=== PATIENT | female | born 1995 | race Two or more races ===

== ENCOUNTER 2020-05-31 10:14 | Emergency (ER) | payer SELFPAY ==
[~2020-05-31] VITALS: Ht 162.6 cm; Wt 54.0 kg
[2020-05-31 11:59] LABS: BASO % 1 % (0-3); EOS % 0 % (0-3); HEMATOCRIT 36.4 % (36.0-47.0); HEMOGLOBIN 13.2 g/dL (12.0-15.5); LYMPH # 1.5 x10^3/uL (1.0-4.8); LYMPH % 15 % (24-48); MEAN CORPUSCULAR HEMOGLOBIN 35 pg (25-35); MEAN CORPUSCULAR HGB CONC 36 g/dL (31-37); MEAN CORPUSCULAR VOLUME 98 fL (79-100); MONO # 0.7 x10^3/uL (0.0-1.1); MONO % 7 % (0-9); NEUT # 7.8 x10^3/uL (1.8-7.7); NEUT % 78 % (31-73); PLATELET COUNT 241 x10^3/uL (140-400); RED BLOOD COUNT 3.73 x10^6/uL (3.50-5.40); RED CELL DISTRIBUTION WIDTH 12.2 % (11.5-14.5); WHITE BLOOD COUNT 10.1 x10^3/uL (4.0-11.0)
[2020-05-31 12:07] LABS: BILIRUBIN,URINE NEGATIVE (NEG); CLARITY,URINE CLEAR; COLOR,URINE YELLOW; NITRITE,URINE NEGATIVE (NEG); PH,URINE 6.5 (<5.0-8.0); PROTEIN,URINE NEGATIVE (NEG-TRACE)
[2020-05-31 12:13] LABS: CALCIUM 8.8 mg/dL (8.5-10.1); CREATININE 0.9 mg/dL (0.6-1.0); GFR 75.7; POTASSIUM 3.3 mmol/L (3.5-5.1)
[2020-05-31 12:15] LABS: RBC,URINE 0 /HPF (0-2)
[2020-05-31 12:16] LABS: BACTERIA,URINE MODERATE /HPF (0-FEW); SQUAMOUS EPITHELIAL CELL,UR OCC /LPF; WBC,URINE >40 /HPF (0-4)
[2020-05-31 12:19] LABS: ALBUMIN 3.5 g/dL (3.4-5.0); ALBUMIN/GLOBULIN RATIO 0.8 (1.0-1.7); TOTAL PROTEIN 7.7 g/dL (6.4-8.2)
--- NOTE | 2020-05-31 12:45 | RAD ---
EXAM: First Trimester OB Ultrasound INDICATION: Reason: LESS THAN 12WKS PREG with vaginal bleeding R/O MISCARRIAGE / Spl. Instructions: / History: TECHNIQUE: Real-time first trimester obstetrical ultrasound was performed with permanent freeze-frame documentation. Transabdominal imaging only was performed. COMPARISON: None. FINDINGS: GESTATIONAL SAC: Gestational sac shape and amniotic fluid volume within normal limits. POLE: Unremarkable. Yolk sac visualized. CROWN RUMP LENGTH: 1.0 cm HEART RATE: 152 bpm PLACENTA: Too early to adequately assess. MATERNAL UTERUS: Unremarkable. MATERNAL ADNEXA: Normal. Right ovary measures 3.4 x 2.0 x 1.8 cm and left ovary measures 3.2 x 1.8 x 1.6 cm. AGE/DATES: Gestational Age by LMP: 7 weeks 4 days Gestational Age by US: 7 weeks 0 days EDC by LMP: 01/13/2021 EDC by US: 01/17/2021 IMPRESSION: Normal viable first trimester OB ultrasound. Estimated gestational age of 7 weeks 0 days and EDC of 01/17/2021. Electronically signed by: Boby Roy MD (05/31/2020 12:42 PM) [id number]
--- NOTE | 2020-05-31 13:03 | PHYS DOC ---
Past Medical History Past Medical History: Other Additional Past Medical Histor: hpv Past Surgical History: No Surgical History Smoking Status: Never Smoker Alcohol Use: None General Adult EDM: Chief Complaint: OTHER COMPLAINTS HPI: HPI: Patient is a 24 year old female presents emergency department complaining that approximately 8:00 this morning she noticed some tissue expelled from her vagina after urinating. She reports that she is approximately 7 weeks . Patient states that she has had low abdomen pain for the past 2 weeks. Patient denies any vaginal discharge or STI concerns. Patient reports her pain is a 4/10 pain on a 1-10 pain scale. Patient denies any urinary symptoms such as pressure burning or increased frequency. Patient reports that she has noticed some light pink spotting on the toilet paper after she has urinated for the past week. Patient denies any vaginal discharge or STI concerns. Patient denies any fever or chills, denies any exposure to the COVID-19 virus, denies any concerns for having the COVID-19 virus and does not wish to be tested today. Patient denies any visual changes, any nasal congestion cough or shortness of breath. Patient denies chest pain, nausea vomiting diarrhea or constipation. Patient denies any back pain or pain in her joints, skin rashes, headaches, focal weaknesses, sensory changes. Patient denies any swelling of her glands. Patient denies any recent life changes, depressions, anxiety, homicidal or suicidal ideation. Review of Systems: Review of Systems: Constitutional: Denies fever or chills. Denies exposure to COVID-19 virus. Eyes: Denies change in visual acuity. HENT: Denies nasal congestion or sore throat. Respiratory: Denies cough or shortness of breath. Cardiovascular: Denies chest pain or edema. GI: Denies nausea, vomiting, constipation or diarrhea. Complains of low abdomen pelvic pain : Denies dysuria. Denies vaginal discharge, denies STI concerns. Musculoskeletal: Denies back pain or joint pain. Integument: Denies rash. Neurologic: Denies headache, focal weakness or sensory changes. Lymphatic: Denies swollen glands. Psychiatric: Denies depression or anxiety. Denies homicidal or suicidal ideation. Heart Score: Risk Factors: Risk Factors: DM, Current or recent (<one month) smoker, HTN, HLP, family history of CAD, obesity. Risk Scores: Score 0 - 3: 2.5% MACE over next 6 weeks - Discharge Home Score 4 - 6: 20.3% MACE over next 6 weeks - Admit for Clinical Observation Score 7 - 10: 72.7% MACE over next 6 weeks - Early Invasive Strategies Physical Exam: PE: Constitutional: Well developed, well nourished, no acute distress, non-toxic appearance. HENT: Normocephalic, atraumatic, bilateral external ears normal, oropharynx moist, no oral exudates, nose normal. Eyes: PERRLA, EOMI, conjunctiva normal, no discharge. Pupils 4 mm. Neck: Normal range of motion, no tenderness, supple, no stridor. Cardiovascular:Heart rate regular rhythm, no murmur, heart sounds S1-S2, no abnormalities per auscultation. Lungs & Thorax: Bilateral breath sounds clear to auscultation all lung akhtar. Abdomen: Bowel sounds normal all 4 quadrants, soft, lower pelvic pain bilateral, no masses, no pulsatile masses. Skin: Warm, dry, no erythema, no rash. Back: No tenderness, no CVA tenderness. Extremities: No tenderness, no cyanosis, no clubbing, ROM intact, no edema. Neurologic: Alert and oriented X 3, normal motor function, normal sensory func tion, no focal deficits noted. Psychologic: Affect normal, judgement normal, mood normal. : Pelvic exam without signs of lesions or herpetic infection, no redness, loss is closed, no bleeding noted, wet prep and GC cultures obtained, white milky discharge around cervix, bimanual right adnexal pain, no left adnexal pain Current Patient Data: Labs: Laboratory Tests Test 05/31/20 10:28 05/31/20 10:31 05/31/20 11:21 Urine Collection Type Unknown Urine Color Yellow Urine Clarity Clear Urine pH 6.5 (<5.0-8.0) Urine Specific [place] 1.025 (1.000-1.030) Urine Protein Negative mg/dL (NEG-TRACE) Urine Glucose (UA) Negative mg/dL (NEG) Urine Ketones (Stick) Negative mg/dL (NEG) Urine Blood Negative (NEG) Urine Nitrite Negative (NEG) Urine Bilirubin Negative (NEG) Urine Urobilinogen Dipstick 1.0 mg/dL (0.2 mg/dL) Urine Leukocyte Esterase Large (NEG) Urine RBC 0 /HPF (0-2) Urine WBC >40 /HPF (0-4) Urine Squamous Epithelial Cells Occ /LPF Urine Bacteria Moderate /HPF (0-FEW) POC Urine HCG, Qualitative Hcg positive (Negative) White Blood Count 10.1 x10^3/uL (4.0-11.0) Red Blood Count 3.73 x10^6/uL (3.50-5.40) Hemoglobin 13.2 g/dL (12.0-15.5) Hematocrit 36.4 % (36.0-47.0) Mean Corpuscular Volume 98 fL (79-100) Mean Corpuscular Hemoglobin 35 pg (25-35) Mean Corpuscular Hemoglobin Concent 36 g/dL (31-37) Red Cell Distribution Width 12.2 % (11.5-14.5) Platelet Count 241 x10^3/uL (140-400) Neutrophils (%) (Auto) 78 % (31-73) H Lymphocytes (%) (Auto) 15 % (24-48) L Monocytes (%) (Auto) 7 % (0-9) Eosinophils (%) (Auto) 0 % (0-3) Basophils (%) (Auto) 1 % (0-3) Neutrophils # (Auto) 7.8 x10^3/uL (1.8-7.7) H Lymphocytes # (Auto) 1.5 x10^3/uL (1.0-4.8) Monocytes # (Auto) 0.7 x10^3/uL (0.0-1.1) Eosinophils # (Auto) 0.0 x10^3/uL (0.0-0.7) Basophils # (Auto) 0.0 x10^3/uL (0.0-0.2) Maternal Serum HCG Beta Subunit 312574 mIU/mL (0-5) H Sodium Level 136 mmol/L (136-145) Potassium Level 3.3 mmol/L (3.5-5.1) L Chloride Level 102 mmol/L (98-107) Carbon Dioxide Level 26 mmol/L (21-32) Anion Gap 8 (6-14) Blood Urea Nitrogen 13 mg/dL (7-20) Creatinine 0.9 mg/dL (0.6-1.0) Estimated GFR (Cockcroft-Gault) 75.7 BUN/Creatinine Ratio 14 (6-20) Glucose Level 81 mg/dL (70-99) Calcium Level 8.8 mg/dL (8.5-10.1) Total Bilirubin 1.0 mg/dL (0.2-1.0) Aspartate Amino Transferase (AST) 18 U/L (15-37) Alanine Aminotransferase (ALT) 34 U/L (14-59) Alkaline Phosphatase 54 U/L (46-116) Total Protein 7.7 g/dL (6.4-8.2) Albumin 3.5 g/dL (3.4-5.0) Albumin/Globulin Ratio 0.8 (1.0-1.7) L Laboratory Tests 05/31/20 11:21 Laboratory Tests 05/31/20 11:21 Vital Signs: Vital Signs Date Time Temp Pulse Resp B/P (MAP) Pulse Ox O2 Delivery O2 Flow Rate FiO2 05/31/20 10:25 98.5 80 14 109/65 (80) 99 Room Air 98.5 EKG: EKG: [] Radiology/Procedures: Radiology/Procedures: PROCEDURE: OB < 14 WKS EXAM: First Trimester OB Ultrasound INDICATION: Reason: LESS THAN 12WKS PREG with vaginal bleeding R/O MISCARRIAGE / Spl. Instructions: / History: TECHNIQUE: Real-time first trimester obstetrical ultrasound was performed with permanent freeze-frame documentation. Transabdominal imaging only was performed. COMPARISON: None. FINDINGS: GESTATIONAL SAC: Gestational sac shape and amniotic fluid volume within normal limits. POLE: Unremarkable. Yolk sac visualized. CROWN RUMP LENGTH: 1.0 cm HEART RATE: 152 bpm PLACENTA: Too early to adequately assess. MATERNAL UTERUS: Unremarkable. MATERNAL ADNEXA: Normal. Right ovary measures 3.4 x 2.0 x 1.8 cm and left ovary measures 3.2 x 1.8 x 1.6 cm. AGE/DATES: Gestational Age by LMP: 7 weeks 4 days Gestational Age by US: 7 weeks 0 days EDC by LMP: 01/13/2021 EDC by US: 01/17/2021 IMPRESSION: Normal viable first trimester OB ultrasound. Estimated gestational age of 7 weeks 0 days and EDC of 01/17/2021. Electronically signed by: Roberto Roy MD (05/31/2020 12:42 PM) [id number] DICTATED and SIGNED BY: ROBERTO ROY MD DATE: 05/31/20 1242 Course & Med Decision Making: Course & Med Decision Making Pertinent Labs and Imaging studies reviewed. (See chart for details) 24-year-old female presents emergency department with fears of miscarriage after passing tissue this morning while urinating. Patient had stated that she noticed some pink spotting after urinating for the past week. Patient is approximately 7 weeks per last menstrual period April 08. Patient states that she had an OB clinic visit, states they did nothing and told her to come back in 3 months. Ultrasound revealed a viable 7-week intrauterine . No ectopic noted. Pelvic exam concerning for PID which was confirmed with wet prep lab results. Patient's urine is infected. Will treat with prescription for Keflex. Consulted with ED attending Dr. Woods recommended deferring treatment for PID until second trimester. Discussed findings with patient along with concerns that she should follow-up sooner with her OB physician concerning her PID so that they can follow closely. Patient gave verbal understanding of this, also gave verbal understanding of DC home in structions, also gave verbal understanding of antibiotic medications. Patient had no further questions or concerns. Patient discharged home. Curio Disclaimer: Curio Disclaimer: This electronic medical record was generated, in whole or in part, using a voice recognition dictation system. Departure Departure Impression: Primary Impression: UTI (urinary tract infection) during Qualified Codes: O23.41 - Unspecified infection of urinary tract in , first trimester Additional Impressions: Acute PID (pelvic inflammatory disease) First trimester Disposition: HOME, SELF-CARE Condition: GOOD Referrals: NO PCP (PCP) Patient Instructions: Pelvic Inflammatory Disease, - Urinary Tract Infection Additional Instructions: Please follow-up with your OB doctor soon. Return to the emergency department for worsening symptoms or further concerns, take prescription medications as directed Scripts Cephalexin (CEPHALEXIN) 500 Mg Tablet 500 MG PO BID for 7 Days, #14 TAB 0 Refills Prov: MARIANO GARCIA APRN 05/31/20 Justicifation of Admission Dx: Justifications for Admission: Justification of Admission Dx: N/A MARIANO GARCIA APRN May 31, 2020 13:03
[2020-05-31 14:00] VITALS: BP 109/58
[2020-05-31] MEDS ORDERED: CEPH500T PO (14:43)
[2020-06-01 22:09] LABS: GC PROBE Negative (Negative)
== END 2020-05-31 15:00 | disposition home or self-care (01) ==
LOC: ER 10:14
DX: O23.41 Unspecified infection of urinary tract in pregnancy, first trimester (principal); O23.591 Infection of other part of genital tract in pregnancy, first trimester; Z3A.01 Less than 8 weeks gestation of pregnancy
CPT/HCPCS: 36415; 76801; 80053; 81001; 81025; 84702; 85025; 87086; 87491; 87591; 99285; Q0111

== ENCOUNTER 2020-12-26 09:59 | Observation (INO) | payer MEDICAID ==
[~2020-12-26 09:59] MED LIST: CEPH500T PO
[2020-12-26] MEDS ORDERED: ACETAMINOPHEN 325 MG TABLET. PO PRN (10:30)
[2020-12-26] MEDS ORDERED: IV RINGERS,LACTATED 1000ML 1,000 ML IV PRN (10:30)
[2020-12-26] MEDS ORDERED: ONDANSETRON PF 4 MG/2 ML VIAL. IVP PRN (10:30)
[2020-12-26 11:28] LABS: BILIRUBIN,URINE SMALL (NEG); CLARITY,URINE TURBID; COLOR,URINE AMBER; NITRITE,URINE NEGATIVE (NEG); PH,URINE 6.5 (<5.0-8.0); PROTEIN,URINE 30 mg/dL (NEG-TRACE)
[2020-12-26 11:45] LABS: BACTERIA,URINE FEW /HPF (0-FEW)
[2020-12-26 11:46] LABS: RBC,URINE OCC /HPF (0-2)
== END 2020-12-26 12:35 | disposition home or self-care (01) ==
LOC: 3 SO LND 09:59
PROVIDERS: ADMIT Obstetrics & Gynecology; ATTEND Obstetrics & Gynecology
DX: O36.8130 Decreased fetal movements, third trimester, not applicable or unspecified (principal); Z3A.37 37 weeks gestation of pregnancy; Z79.899 Other long term (current) drug therapy
CPT/HCPCS: 59025; 81001; 87086; G0378; G0379; 87147

== ENCOUNTER 2020-12-29 10:21 | Inpatient (IN) | payer MEDICAID ==
[~2020-12-29] VITALS: Ht 154.9 cm; Wt 59.4 kg
[2020-12-29] MEDS ORDERED: IV RINGERS,LACTATED 1000ML 1,000 ML IV SCH ×2 (10:45→19:00)
[2020-12-29] MEDS ORDERED: ONDANSETRON PF 4 MG/2 ML VIAL. IVP PRN (10:45)
[2020-12-29] MEDS ORDERED: ACETAMINOPHEN 325 MG TABLET. PO PRN ×2 (10:45→12:00)
[2020-12-29 10:46] LABS: BILIRUBIN,URINE SMALL (NEG); CLARITY,URINE CLEAR; COLOR,URINE AMBER; NITRITE,URINE NEGATIVE (NEG); PROTEIN,URINE NEGATIVE (NEG-TRACE)
[2020-12-29 10:50] LABS: AMPHETAMINE/METHAMPHETAMINE NEG (NEG); BARBITURATES NEG (NEG); BENZODIAZEPINES NEG (NEG); CANNABINOIDS NEG (NEG); COCAINE NEG (NEG); METHADONE NEG (NEG); OPIATES NEG (NEG); PHENCYCLIDINE NEG (NEG)
[2020-12-29 10:57] LABS: BACTERIA,URINE MODERATE /HPF (0-FEW); WBC,URINE 20-40 /HPF (0-4)
[2020-12-29 10:58] LABS: AMORPHOUS SEDIMENT,UR PRESENT /HPF
[2020-12-29] MEDS ORDERED: OXYTOCIN 30 UNIT/500 ML PREMIX 500 ML IV PRN ×2 (12:00)
[2020-12-29] MEDS ORDERED: PENICILLIN G K 2,500,000 UNIT in IV DEXTROSE 5% 50 ML IV SCH (12:00)
[2020-12-29] MEDS ORDERED: TERBUTALINE 1 MG/ML VIAL. SQ PRN (12:00)
[2020-12-29] MEDS ORDERED: 0.9 % SODIUM CHLORIDE 10 ML DISP.SYRIN. IV PRN (12:00)
[2020-12-29] MEDS ORDERED: LIDOCAINE 1% PF 30 ML VIAL. INJ PRN (12:00)
[2020-12-29] MEDS ORDERED: BUTORPHANOL 2 MG/ML VIAL. IVP PRN (12:00)
[2020-12-29] MEDS ORDERED: PENICILLIN G K 5,000,000 UNIT in IV DEXTROSE 5% 100ML 100 ML IV ONE ×2 (12:00→13:00)
[2020-12-29 12:02] LABS: BASO # 0.1 x10^3/uL (0.0-0.2); BASO % 1 % (0-3); EOS % 0 % (0-3); HEMATOCRIT 27.2 % (36.0-47.0); HEMOGLOBIN 9.3 g/dL (12.0-15.5); LYMPH # 0.9 x10^3/uL (1.0-4.8); LYMPH % 6 % (24-48); MEAN CORPUSCULAR HEMOGLOBIN 32 pg (25-35); MEAN CORPUSCULAR HGB CONC 34 g/dL (31-37); MEAN CORPUSCULAR VOLUME 94 fL (79-100); MONO # 0.7 x10^3/uL (0.0-1.1); MONO % 5 % (0-9); NEUT # 13.6 x10^3/uL (1.8-7.7); NEUT % 88 % (31-73); PLATELET COUNT 442 x10^3/uL (140-400); RED BLOOD COUNT 2.89 x10^6/uL (3.50-5.40); RED CELL DISTRIBUTION WIDTH 13.4 % (11.5-14.5); WHITE BLOOD COUNT 15.4 x10^3/uL (4.0-11.0)
[2020-12-29 12:23] LABS: % BANDS 10 % (0-9); % EOS 1 % (0-5); % LYMPHS 6 % (24-48); % MONOS 2 % (0-10); % SEGS 81 % (35-66)
[2020-12-29 12:24] LABS: ANISOCYTOSIS SLIGHT; PLT ESTIMATE INCREASED (ADEQUATE)
[2020-12-29] MEDS: BUTORPHANOL 2 MG/ML VIAL. IVP PRN ×2 (12:40→16:24)
--- NOTE | 2020-12-29 12:48 | PDOC1 ---
[employer] H&P Date of Admission: Date of Admission: Dec 29, 2020 at 10:21 History of Present Illness: EDC: 01/13/21 LMP: 04/08/20 25y @37.6 by L=7 presents to L&D with ctxs. The pt was found in the office yesterday to be 2-3 cm dilated. On presentation to L&D she was found to be 3-4 cm dilated. She progressed over the course of an hour so she was admitted. It was difficult to feel a amniotic bag on the SVE so a BSUS was performed. She appeared to be oligio. There were concerns of Cholestasis so bile acids were sent 12/06. The bile acids returned at 9.5. She has been getting testing since. She is taking Ursodiol which has been helping with the itching. PMH: H/o PID PSH: Hernia Meds: PNV, Fe, Ursodiol All: NKDA OBHx: G1 SH: no tob, no EtOH FH: DM Medications: Meds: Current Medications Medications (Trade) Dose Ordered Sig/Sofia Route PRN Reason Start Time Stop Time Status Last Admin Dose Admin Ondansetron HCl (Zofran) 4 mg PRN Q6HRS PRN IVP NAUSEA 12/29/20 10:45 12/29/20 12:40 Butorphanol Tartrate (Stadol) 2 mg PRN Q1HR PRN IVP Severe labor pain 12/29/20 12:00 12/29/20 12:40 Allergies: Coded Allergies: No Known Drug Allergies (Unverified , 12/29/20) Physical Exam: Vital Signs: Vital Signs Date Time Temp Pulse Resp B/P (MAP) Pulse Ox O2 Delivery O2 Flow Rate FiO2 12/29/20 12:40 Room Air PE: GENERAL: No apparent distress. Alert and oriented. HEENT: Head normocephalic, atraumatic. NECK: Supple LUNGS: Clear to auscultation. HEART: RRR, S1, S2 present, pulses intact ABDOMEN: Soft, positive bowel sounds. EXTREMITIES: No cyanosis or edema. NEUROLOGIC: Normal speech, normal tone PSYCHIATRIC: Normal affect, normal mood. SKIN: No ulceration. FHT: 120s +acels/no decels/mLTV [place]: 4-5 min SVE: 4/50/-1 Labs: Laboratory Tests Test 12/29/20 10:35 12/29/20 11:50 12/29/20 12:00 Urine Collection Type Void Urine Color Vanessa Urine Clarity Clear Urine pH 7.0 (<5.0-8.0) Urine Specific [place] 1.010 (1.000-1.030) Urine Protein Negative mg/dL (NEG-TRACE) Urine Glucose (UA) Negative mg/dL (NEG) Urine Ketones (Stick) Negative mg/dL (NEG) Urine Blood Large (NEG) Urine Nitrite Negative (NEG) Urine Bilirubin Small (NEG) Urine Urobilinogen Dipstick 1.0 mg/dL (0.2 mg/dL) Urine Leukocyte Esterase Large (NEG) Urine RBC 3-5 /HPF (0-2) Urine WBC 20-40 /HPF (0-4) Urine Squamous Epithelial Cells Mod /LPF Urine Transitional Epithelial Cells Occ /LPF Urine Amorphous Sediment Present /HPF Urine Bacteria Moderate /HPF (0-FEW) Urine Opiates Screen Neg (NEG) Urine Methadone Screen Neg (NEG) Urine Barbiturates Neg (NEG) Urine Phencyclidine Screen Neg (NEG) Urine Amphetamine/Methamphetamine Neg (NEG) Urine Benzodiazepines Screen Neg (NEG) Urine Cocaine Screen Neg (NEG) Urine Cannabinoids Screen Neg (NEG) Urine Ethyl Alcohol Neg (NEG) White Blood Count 15.4 x10^3/uL (4.0-11.0) H Red Blood Count 2.89 x10^6/uL (3.50-5.40) L Hemoglobin 9.3 g/dL (12.0-15.5) L Hematocrit 27.2 % (36.0-47.0) L Mean Corpuscular Volume 94 fL (79-100) Mean Corpuscular Hemoglobin 32 pg (25-35) Mean Corpuscular Hemoglobin Concent 34 g/dL (31-37) Red Cell Distribution Width 13.4 % (11.5-14.5) Platelet Count 442 x10^3/uL (140-400) H Neutrophils (%) (Auto) 88 % (31-73) H Lymphocytes (%) (Auto) 6 % (24-48) L Monocytes (%) (Auto) 5 % (0-9) Eosinophils (%) (Auto) 0 % (0-3) Basophils (%) (Auto) 1 % (0-3) Neutrophils # (Auto) 13.6 x10^3/uL (1.8-7.7) H Lymphocytes # (Auto) 0.9 x10^3/uL (1.0-4.8) L Monocytes # (Auto) 0.7 x10^3/uL (0.0-1.1) Eosinophils # (Auto) 0.0 x10^3/uL (0.0-0.7) Basophils # (Auto) 0.1 x10^3/uL (0.0-0.2) Segmented Neutrophils % 81 % (35-66) H Band Neutrophils % 10 % (0-9) H Lymphocytes % 6 % (24-48) L Monocytes % 2 % (0-10) Eosinophils % 1 % (0-5) Platelet Estimate Increased (ADEQUATE) Anisocytosis Slight SARS-CoV-2 Antigen (Rapid) Negative (NEGATIVE) Laboratory Tests 12/29/20 11:50 Laboratory Tests 12/29/20 11:50 Assessment & Plan: A/P 25y @ 37.6 by L=7 1.) Active labor expectant management 2.) Oligio denies LOF 3.) Elevated GTT - all values of 3hr GTT wnl 4.) Possible ICP - month of pruritus, total bile acid below 10 (9.5), LFT's nml, on Ursodiol 5.) Anemia on Fe daily 6.) Gap in care 23-32wks 7.) Flu given 08/23/20 8.) TDAP given 11/22/20 9.) Fetus cat I FHT 10.) GBS pos on PCN MARIANO EMANUEL MD Dec 29, 2020 12:48
[2020-12-29] MEDS: PENICILLIN G K 2,500,000 UNIT in IV DEXTROSE 5% 50 ML IV SCH ×2 (16:06→20:22)
[2020-12-29] MEDS: IV RINGERS,LACTATED 1000ML 1,000 ML IV SCH ×2 (16:25→18:18)
[2020-12-29] MEDS ORDERED: fentaNYL PF VIAL 100 MCG/2 ML VIAL ONE (18:19)
[2020-12-29] MEDS ORDERED: ROPIVacaine 0.2% PF 10 ML VIAL. ONE ×2 (18:19→19:00)
[2020-12-29] MEDS ORDERED: L&D EPIDURAL SYRINGE 50 ML ONE ×2 (18:20→22:40)
[2020-12-29] MEDS ORDERED: L&D EPIDURAL 50 ML SYRINGE. ONE (19:00)
[2020-12-29] MEDS ORDERED: ePHEDrine PF IN SALINE 50 MG/10 ML SYRINGE. IV PRN (19:00)
[2020-12-29] MEDS ORDERED: ROPIVacaine 0.2% PF 10 ML VIAL. EPID PRN (19:00)
[2020-12-29] MEDS ORDERED: NALOXONE 0.4 MG/ML VIAL. IV PRN (19:00)
[2020-12-29] MEDS ORDERED: IV NORMAL SALINE 1000ML BAG 1,000 ML IV SCH (19:30)
[2020-12-30] MEDS: PENICILLIN G K 2,500,000 UNIT in IV DEXTROSE 5% 50 ML IV SCH (00:02)
--- NOTE | 2020-12-30 01:28 | PDOC ---
VAGINAL DELIVERY DATE DATE: 12/30/20 TIME: 01:25 TIME Patient delivered a viable male infant over intact perineum at 0110. Wt 6 lb 9 oz. Apgars 6/8. Placenta delivered spontaneously, intact with 3VC. 2nd degree laceration repaired with 20 vicryl in nml fashion. Good hemostasis noted. 20 U of Pit given with IVF. EBL 200cc. Cord blood gas sent for mec. Placenta sent to path for mec and vaginal bleeding throughout labor. WEIGHT Weight [ ] MARIANO EMANUEL MD Dec 30, 2020 01:28
[2020-12-30] MEDS ORDERED: TDaP (Adacel) per PROTOCOL. MC PRN (01:30)
[2020-12-30] MEDS ORDERED: HYDROCORTISONE 1% TOPICAL OINTMENT 30GM TUBE. TP PRN (01:30)
[2020-12-30] MEDS ORDERED: MAG HYDROX/ALUMINUM HYD/SIMETH 30 ML ORAL.SUSP PO PRN (01:30)
[2020-12-30] MEDS ORDERED: BENZOCAINE 20% TOPICAL AEROSOL SPRAY 57GM CAN. TP PRN (01:30)
[2020-12-30] MEDS ORDERED: oxyCODONE/APAP 5/325 1 TAB TABLET PO PRN (01:30)
[2020-12-30] MEDS ORDERED: 0.9 % SODIUM CHLORIDE 10 ML DISP.SYRIN. IV PRN (01:30)
[2020-12-30] MEDS ORDERED: OXYTOCIN 30 UNIT/500 ML PREMIX 500 ML IV PRN (01:30)
[2020-12-30] MEDS ORDERED: diphenhydrAMINE HCL 25 MG CAPSULE PO PRN (01:30)
[2020-12-30] MEDS ORDERED: MAGNESIUM HYDROXIDE 2,400 MG/30 ML ORAL.SUSP. PO PRN (01:30)
[2020-12-30] MEDS ORDERED: ACETAMINOPHEN 325 MG TABLET. PO PRN (01:30)
[2020-12-30] MEDS ORDERED: MMR per PROTOCOL. MC PRN (01:30)
[2020-12-30] MEDS ORDERED: ZOLPIDEM 5 MG TABLET. PO PRN (01:30)
[2020-12-30] MEDS ORDERED: PHENYLEPH/MINERAL OIL/PETROLAT RECTAL OINTMENT TUBE. RC PRN (01:30)
[2020-12-30] MEDS ORDERED: SIMETHICONE 80 MG TAB.CHEW PO PRN (01:30)
[2020-12-30] MEDS: IBUPROFEN 400 MG TABLET. PO PRN ×3 (04:59→20:00)
[2020-12-30 08:00] VITALS: BP 85/47
[2020-12-30] MEDS: PRENATAL MULTIVITAMIN TABLET. PO SCH (08:32)
[2020-12-30 11:40] VITALS: BP 83/45
[2020-12-30 16:13] VITALS: BP 83/45
[2020-12-30 20:20] VITALS: BP 92/55
[2020-12-31 06:03] VITALS: BP 82/50
[2020-12-31 08:08] VITALS: BP 75/37
[2020-12-31] MEDS: FERROUS SULFATE 325 MG TABLET. PO SCH ×2 (09:13→17:02)
[2020-12-31] MEDS: PRENATAL MULTIVITAMIN TABLET. PO SCH (09:13)
[2020-12-31] MEDS: IBUPROFEN 400 MG TABLET. PO PRN ×2 (09:14→17:02)
[2020-12-31 09:21] LABS: HEMATOCRIT 23.3 % (36.0-47.0); RED BLOOD COUNT 2.45 x10^6/uL (3.50-5.40); RED CELL DISTRIBUTION WIDTH 14.1 % (11.5-14.5); WHITE BLOOD COUNT 9.7 x10^3/uL (4.0-11.0)
--- NOTE | 2020-12-31 11:34 | PDOC ---
BELL CAPTAIN PROGRESS NOTE Date of Service: DATE: 12/31/20 TIME: 11:34 Subjective: Pt with good pain control. Alexus PO. Voiding. Minimal lochia. Pruritus has resolved. Objective: Vital Signs: Vital Signs Date Time Temp Pulse Resp B/P (MAP) Pulse Ox O2 Delivery O2 Flow Rate FiO2 12/30/20 08:00 98.5 63 20 85/47 (60) 98 98.5 12/30/20 20:20 Room Air Vital Signs Date Time Temp Pulse Resp B/P (MAP) Pulse Ox O2 Delivery O2 Flow Rate FiO2 12/31/20 08:08 97.3 66 18 75/37 (50) 98 Room Air 97.3 Labs: Laboratory Tests Test 12/31/20 08:25 White Blood Count 9.7 x10^3/uL (4.0-11.0) Red Blood Count 2.45 x10^6/uL (3.50-5.40) L Hemoglobin 8.0 g/dL (12.0-15.5) L Hematocrit 23.3 % (36.0-47.0) L Mean Corpuscular Volume 95 fL (79-100) Mean Corpuscular Hemoglobin 33 pg (25-35) Mean Corpuscular Hemoglobin Concent 34 g/dL (31-37) Red Cell Distribution Width 14.1 % (11.5-14.5) Platelet Count 376 x10^3/uL (140-400) Laboratory Tests 12/31/20 08:25 Laboratory Tests 12/31/20 08:25 Physical Exam: GENERAL: No apparent distress. Alert and oriented. HEENT: Head normocephalic, atraumatic. NECK: Supple LUNGS: Clear to auscultation. HEART: RRR, S1, S2 present, pulses intact ABDOMEN: Soft, positive bowel sounds. EXTREMITIES: No cyanosis or edema. NEUROLOGIC: Normal speech, normal tone PSYCHIATRIC: Normal affect, normal mood. SKIN: No ulceration. FFNT below umb No C/C/E Assessment & Plan: A/P 25y PPD #1 s/p 1.) PP doing well 2.) Possible ICP pruritus resolved since delivery 3.) Anemia Hgb 9.3 -> 8.0, on Fe BID 4.) Flu given 08/23/20 5.) TDAP given 11/22/20 6.) Cont PP care EMANUEL,MARIANO B MD Dec 31, 2020 11:34
[2020-12-31 12:09] VITALS: BP 84/49
[2020-12-31] MEDS: DOCUSATE SODIUM 100 MG CAPSULE. PO PRN (13:22)
[2020-12-31 16:44] VITALS: BP 87/52
[2020-12-31 20:12] VITALS: BP 86/51
[2021-01-01 06:24] VITALS: BP 98/55
[2021-01-01] MEDS ORDERED: FERR325T14 PO (08:00)
[2021-01-01] MEDS ORDERED: IBUP-1060 PO (08:00)
[2021-01-01] MEDS ORDERED: DOCU-109 PO (08:00)
[2021-01-01] MEDS: DOCUSATE SODIUM 100 MG CAPSULE. PO PRN (08:21)
[2021-01-01] MEDS: PRENATAL MULTIVITAMIN TABLET. PO SCH (08:21)
[2021-01-01] MEDS: IBUPROFEN 400 MG TABLET. PO PRN (08:22)
[2021-01-01] MEDS: FERROUS SULFATE 325 MG TABLET. PO SCH (08:23)
--- NOTE | 2021-01-01 10:38 | PDOC ---
INCINERATOR OPERATOR PROGRESS NOTE Date of Service: DATE: 01/01/21 TIME: 10:37 Subjective: Pt with good pain control. Alexus PO. Voiding. Minimal lochia. Objective: Vital Signs: Vital Signs Date Time Temp Pulse Resp B/P (MAP) Pulse Ox O2 Delivery O2 Flow Rate FiO2 12/31/20 08:08 97.3 66 18 75/37 (50) 98 Room Air 97.3 Vital Signs Date Time Temp Pulse Resp B/P (MAP) Pulse Ox O2 Delivery O2 Flow Rate FiO2 01/01/21 06:24 98.6 70 18 98/55 (69) 97 Room Air 98.6 Physical Exam: GENERAL: No apparent distress. Alert and oriented. HEENT: Head normocephalic, atraumatic. NECK: Supple LUNGS: Clear to auscultation. HEART: RRR, S1, S2 present, pulses intact ABDOMEN: Soft, positive bowel sounds. EXTREMITIES: No cyanosis or edema. NEUROLOGIC: Normal speech, normal tone PSYCHIATRIC: Normal affect, normal mood. SKIN: No ulceration. FFNT below umb No C/C/E Assessment & Plan: A/P 25y PPD #2 s/p 1.) PP doing well 2.) Possible ICP pruritus resolved since delivery 3.) Anemia Hgb 9.3 -> 8.0, on Fe BID 4.) Flu given 08/23/20 5.) TDAP given 11/22/20 6.) D/c home MARIANO EMANUEL MD Jan 01, 2021 10:38
--- NOTE | 2021-01-01 11:00 | DS ---
DATE OF DISCHARGE: 01/01/2021 ADMISSION DIAGNOSES: 1. Intrauterine a 37 weeks and 6 days by LMP equal to a 7-week ultrasound. 2. Active labor. 3. Oligohydramnios. 4. Elevated GTT with normal 3-hour GTT. 5. Possible cholestasis of with a total bile salts of 9.5 with normal LFTs. 6. Anemia. 7. A gap in care between 23 and 32 weeks. 8. GBS positive. DISCHARGE DIAGNOSES: 1. Intrauterine a 37 weeks and 6 days by LMP equal to a 7-week ultrasound. 2. Active labor. 3. Oligohydramnios. 4. Elevated GTT with normal 3-hour GTT. 5. Possible cholestasis of with a total bile salts of 9.5 with normal LFTs. 6. Anemia. 7. A gap in care between 23 and 32 weeks. 8. GBS positive. PROCEDURE: Spontaneous vaginal delivery. BRIEF HOSPITAL COURSE: The patient is a 25-year-old 1, para 0, who presented to Labor and Delivery at 37 weeks and 6 days by LMP equal to a 7-week ultrasound with contractions. The patient was seen in the office, the previous day and was found to be 2-3 cm dilated. On presentation to Labor and Delivery, the patient was found to be 3-4 cm dilated and danielle regularly. Over the course of an hour, the patient progressed, so she was subsequently admitted. A bedside ultrasound was performed due to the difficulty in feeling the membranes on cervical exam. Oligohydramnios was noted on the bedside ultrasound. Of note, the patient was diagnosed with cholestasis of around 12/06/2020. The patient did not quite meet the definition of cholestasis since her total bile salts were below 10. The patient was placed on Ursodiol, which did lead to resolution of her itching. The patient was getting testing since the diagnosis. After admission, the patient was started on penicillin for GBS positive status. The patient's membranes were ruptured for augmentation as well. The patient progressed slowly and ultimately when she reached around 9 cm, and was started on Pitocin for her protracted first stage of labor. The patient delivered within an hour, around 1 am the following morning. See delivery note for full details. By day #2, the patient was meeting all discharge criteria and was subsequently discharged home. Of note, the patient reported that her pruritus had improved significantly since delivery. The patient also had a hemoglobin of 9.3 on admission and after delivery, it was found to be 8.0, so the patient was started on iron b.i.d. DISCHARGE INSTRUCTIONS: The patient was told not to lift anything greater than 20 pounds, have pelvic rest for 6 weeks. CALL IF: The patient is to call if she had fevers, chills, nausea, vomiting, abdominal pain or any additional questions or concerns. FOLLOWUP APPOINTMENT: The patient is to follow up on 02/05/2021 at 8:00 a.m. for a appointment. DISCHARGE MEDICATIONS: The patient was given a prescription for Motrin 800 mg, 30 pills; Colace 100 mg, 30 pills; and ferrous sulfate 325 mg, 30 pills. MARIANO EMANUEL MD DR: ARACELI/liliya JOB#: [id number] / [id number] RANDI
[2021-01-01 11:15] VITALS: BP 91/53
[2021-01-01 13:50] VITALS: BP 97/55
--- NOTE | 2021-01-01 14:00 | NUR ---
Discharge and follow up instructions reviewed and given to patient by this nurse using the [employer] as[employer] interpreter phone #[phone]. Pt verbalized understanding and denied any questions at this time. Pt ambulated out of the hospital with Nikki Ramos RN by her side.
== END 2021-01-01 14:00 | disposition home or self-care (01) | DRG 806 ==
LOC: 3 SO LND 10:21 → OBSVTOIN 12-30 01:25
PROVIDERS: ADMIT Obstetrics & Gynecology; ATTEND Obstetrics & Gynecology
PROC: 10E0XZZ Delivery of Products of Conception, External Approach (ICD-10-PCS; principal; 2020-12-30)
PROC: 0KQM0ZZ Repair Perineum Muscle, Open Approach (ICD-10-PCS; 2020-12-30)
PROC: 10907ZC Drainage of Amniotic Fluid, Therapeutic from Products of Conception, Via Natural or Artificial Opening (ICD-10-PCS; 2020-12-30)
PROC: 00HU33Z Insertion of Infusion Device into Spinal Canal, Percutaneous Approach (ICD-10-PCS; 2020-12-30)
PROC: 3E0R3BZ Introduction of Anesthetic Agent into Spinal Canal, Percutaneous Approach (ICD-10-PCS; 2020-12-30)
DX: O99.824 Streptococcus B carrier state complicating childbirth (principal); O41.03X0 Oligohydramnios, third trimester, not applicable or unspecified; Z37.0 Single live birth; O63.0 Prolonged first stage (of labor); O99.02 Anemia complicating childbirth; O99.814 Abnormal glucose complicating childbirth; O99.72 Diseases of the skin and subcutaneous tissue complicating childbirth; O70.1 Second degree perineal laceration during delivery; Z20.822 Contact with and (suspected) exposure to COVID-19; L29.9 Pruritus, unspecified; Z83.3 Family history of diabetes mellitus; Z3A.37 37 weeks gestation of pregnancy
CPT/HCPCS: 36415; 80307; 81001; 85007; 85025; 85027; 86592; 86850; 86900; 86901; 87086; 87147; 87426; C1755; G0378; G0379; J0595; J2405; J2540; J2590; J2795; J3010; J7060; J7120; U0003

== ENCOUNTER 2021-09-23 14:58 | Emergency (ER) | payer MEDICAID ==
[~2021-09-23] VITALS: Ht 152.4 cm; Wt 53.3 kg
[~2021-09-23 14:58] MED LIST changes: +DOCU-109 PO; +FERR325T14 PO; +IBUP-1060 PO
[2021-09-23 17:07] VITALS: BP 92/63
[2021-09-23 18:23] LABS: BILIRUBIN,URINE NEGATIVE (NEG); CLARITY,URINE TURBID; COLOR,URINE AMBER; NITRITE,URINE POSITIVE (NEG); PROTEIN,URINE 100 mg/dL (NEG-TRACE)
--- NOTE | 2021-09-23 18:26 | PHYS DOC ---
Past Medical History Past Medical History: Other Additional Past Medical Histor: hpv Past Surgical History: No Surgical History Smoking Status: Never Smoker Alcohol Use: None General Adult EDM: Chief Complaint: FEVER HPI: HPI: Patient is a 25 year old female who presents with fever and chills for 2 days and after she took Tylenol she states she breaks into a sweat. She is also having burning with urination and urinary frequency. Patient got is her first Covid vaccine on September 05. She denies abdominal pain, back pain, headache, dizziness, numbness or tingling, chest pain, shortness of air, cough, sore throat, nasal congestion. Review of Systems: Review of Systems: Constitutional: +fever or +chills. [] Eyes: Denies change in visual acuity. [] HENT: Denies nasal congestion or sore throat. [] Respiratory: Denies cough or shortness of breath. [] Cardiovascular: Denies chest pain or edema. [] GI: Denies abdominal pain, nausea, vomiting, bloody stools or diarrhea. [] : Denies dysuria. + Urinary frequency , + burning with urination [] Musculoskeletal: Denies back pain or joint pain. [] Integument: Denies rash. [] Neurologic: Denies headache, focal weakness or sensory changes. [] Endocrine: Denies polyuria or polydipsia. [] Lymphatic: Denies swollen glands. [] Psychiatric: Denies depression or anxiety. [] Heart Score: C/O Chest Pain: No Allergies: Allergies: Allergies Coded Allergies Type Severity Reaction Last Updated Verified No Known Drug Allergies 12/29/20 No Physical Exam: PE: Constitutional: Well developed, well nourished, no acute distress, non-toxic appearance. [] HENT: Normocephalic, atraumatic, bilateral external ears normal, oropharynx moist, no oral exudates, nose normal. [] Eyes: PERRLA, EOMI, conjunctiva normal, no discharge. [] Neck: Normal range of motion, no tenderness, supple, no stridor. [] Cardiovascular:Heart rate regular rhythm, no murmur [] Lungs & Thorax: Bilateral breath sounds clear to auscultation [] Abdomen: Bowel sounds normal, soft, no tenderness, no masses, no pulsatile masses. [] Skin: Warm, dry, no erythema, no rash. [] Back: No tenderness, no CVA tenderness. [] Extremities: No tenderness, no cyanosis, no clubbing, ROM intact, no edema. [] Neurologic: Alert and oriented X 3, normal motor function, normal sensory function, no focal deficits noted. [] Psychologic: Affect normal, judgement normal, mood normal. [] Normal physical exam Current Patient Data: Labs: Laboratory Tests Test 09/23/21 18:02 POC Urine HCG, Qualitative Hcg negative (Negative) Vital Signs: Vital Signs Date Time Temp Pulse Resp B/P (MAP) Pulse Ox O2 Delivery O2 Flow Rate FiO2 09/23/21 17:07 98.1 99 16 92/63 (73) 99 Room Air 98.1 EKG: EKG: [] Radiology/Procedures: Radiology/Procedures: [] Course & Med Decision Making: Course & Med Decision Making Pertinent Labs and Imaging studies reviewed. (See chart for details) COVID-19 CRITERIA: The patient was evaluated during the global COVID-19 pandemic, and that diagnosis was suspected/considered upon their initial presentation. Their evaluation, treatment and testing was consistent with current guidelines for patients who present with complaints or symptoms that may be related to COVID-19. See HPI. Alert and oriented x4. Ambulatory with a steady gait. Speaks in full clear sentences. Skin pink warm and dry. Lungs are clear all station all lobes. Abdomen is soft and nontender. No CVA tenderness. Vital signs within normal limits. She states she is eating and drinking appropriately. She states she is not been vomiting. [] Dragon Disclaimer: Dragrudy Disclaimer: This electronic medical record was generated, in whole or in part, using a voice recognition dictation system. COVID-19 Patient Risks: Age 65 or older: No Sign of co-morbidity: No Exp to person + for COVID: No Exp to PUI: No Travel from affected area: No Lower respiratory symptoms: No Fever: Yes Other: No PPE Use: Full PPE with N95 mask or PAPR: Yes Departure Departure Impression: Primary Impression: UTI (urinary tract infection) Qualified Codes: N30.01 - Acute cystitis with hematuria Additional Impression: Person under investigation for COVID-19 Disposition: HOME / SELF CARE / HOMELESS Condition: STABLE Referrals: NO PCP (PCP) Patient Instructions: Urinary Tract Infection Additional Instructions: Follow up with primary care provider if needed. Take medication as prescribed and with food. Drink plenty of fluids. Return for worsening symptoms. Scripts Cephalexin (KEFLEX) 500 Mg Capsule 1 CAP PO TID, #21 CAP Prov: PRACHI GUTHRIE APRN 09/23/21 PRACHI GUTHRIE APRN Sep 23, 2021 18:26
[2021-09-23 18:31] LABS: BACTERIA,URINE MODERATE /HPF (0-FEW); WBC,URINE TNTC /HPF (0-4)
[2021-09-23] MEDS ORDERED: CEPH500C PO (18:42)
[2021-09-23] MEDS ORDERED: cefTRIAXone IM 1 GM VIAL IM ONE (18:45)
--- NOTE | 2021-09-24 15:56 | NUR ---
IP: Informed pt of negative covid test. pt verbalized understanding.
== END 2021-09-23 19:57 | disposition home or self-care (01) ==
LOC: ER 14:58
DX: N30.01 Acute cystitis with hematuria (principal); Z20.822 Contact with and (suspected) exposure to COVID-19
CPT/HCPCS: 81001; 81025; 87086; 87426; 96372; 99283; J0696; U0003; U0005